=== PATIENT | male | born 1995 | race Caucasian/White ===

== ENCOUNTER 2018-06-07 23:16 | Emergency (ER) | payer MEDICAID, SELFPAY ==
[2018-06-07 23:19] VITALS: BP 142/80; PULSE 61; RESP 20; TEMP 36.8; O2SAT 97
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
[2018-06-07] MEDS: LORazepam 1 MG TAB PO (23:37)
[2018-06-07] MEDS: Haloperidol 5 MG TAB PO (23:37)
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
[2018-06-07 23:58] LABS: Abs Immature Grans 0.03 k/cumm (0.0-0.09); Absolute Basophil Count 0.05 k/cumm (0.0-0.2); Absolute Eosinophil Count 0.15 k/cumm (0.0-0.7); Absolute Lymphocyte Count 2.54 k/cumm (1.2-3.4); Absolute Monocyte Count 1.34 k/cumm (0.11-0.7); Absolute Neutrophil Count 7.15 k/cumm (1.2-6.7); Basophils % 0.4; Eosinophils % 1.3; HCT 43.4 % (40.0-50.0); HGB 14.5 g/dL (13.5-17.5); Immature Grans % 0.3; Lymphocytes % 22.6; Mean Corp. HGB Concentration 33.4 g/dL (32.0-36.0); Mean Corpuscular Volume 92.9 fL (80-95); Mean Platelet Volume 10.2 fL (8.0-11.0); Monocytes % 11.9; Neutrophils % 63.5; Platelet Count 334 x1000/uL (130-400); RBC 4.67 m/cumm (4.50-6.00); RBC Distribution Width 13.2 % (11.8-14.1); White Blood Cell Count 11.26 k/cumm (4.4-10.8)
--- NOTE | 2018-06-08 00:03 | PDOC.MHCN ---
Presenting Issue: *How did they arrive here at ER and why did they come: Sgt Palomo and Officer Jeny of the [facility] [employer] bring patient to the ER due to erratic behavior and possible psychosis. Precipitating Factors: *Assessment of Safety SI/HI (address delusions if pertaining to the SI/HI) Patient does not answer questions asked of him, so it is impossible to assess for suicidal or homicidal ideation. He goes off on tangents. Speech is pressured. He does out of the blue tell the police officers that he knows how to commit suicide and begins to name the different ways he could kill himself if he wanted to. Patient becomes so agitated while at the hospital that he has to be restrained. Disposition: *Behavior: Uncooperative. *Eye Contact: Direct and intense. *Mood: Agitated. *Affect: Anxious. *Appetite: Unknown. *Sleep (trouble falling/staying asleep): Unknown. Plan: Plan is for patient to remain at [facility] for observation to rule-out drug induced psychosis. He will be assessed in the morning.
--- NOTE | 2018-06-08 00:10 | PDOC.MHCN_ITS ---
Presenting Issue: *How did they arrive here at ER and why did they come: Sgt Palomo and Officer Jeny of the [facility] Police Dept. bring patient to the ER due to erratic behavior and possible psychosis. Precipitating Factors: *Assessment of Safety SI/HI (address delusions if pertaining to the SI/HI) Patient does not answer questions asked of him, so it is impossible to assess for suicidal or homicidal ideation. He goes off on tangents. Speech is pressured. He does out of the blue tell the police officers that he knows how to commit suicide and begins to name the different ways he could kill himself if he wanted to. Patient becomes so agitated while at the hospital that he has to be restrained. Disposition: *Behavior: Uncooperative. *Eye Contact: Direct and intense. *Mood: Agitated. *Affect: Anxious. *Appetite: Unknown. *Sleep (trouble falling/staying asleep): Unknown. Plan: Plan is for patient to remain at [facility] for observation to rule-out drug induced psychosis. He will be assessed in the morning.
[2018-06-08 00:20] LABS: ALT 26 U/L (12-78); AST 20 U/L (15-37); Albumin 4.3 g/dL (3.4-5.0); Alkaline Phosphatase 68 U/L (46-116); Anion Gap 7.2 mmol/L (3-11); BUN 7 mg/dL (7-18); CO2 28.8 mmol/L (21.0-32.0); CREATININE 0.81 mg/dL (0.70-1.30); Calcium 9.2 mg/dL (8.5-10.1); Chloride 101 mmol/L (98-107); ETHANOL BLOOD < 3.0 mg/dL (<3); Glucose 98 mg/dL (70-100); Potassium 3.6 mmol/L (3.5-5.1); Sodium 137 mmol/L (136-145); TSH (W/Ref FT4) 0.91 uIU/mL (0.358-3.74); Total Protein 7.9 g/dL (6.4-8.2)
[2018-06-08 00:38] LABS: *AMPHETAMINES SCREEN URINE Negative (Negative); *BARBITURATES SCREEN URINE Negative (Negative); *BENZODIAZEPINES SCREEN URINE Negative (Negative); Cannabinoids THC POSITIVE (Negative); Cocaine Screen,Urine Negative (Negative); METHADONE URINE SCREEN Negative (Negative); OPIATES URINE SCREEN Negative (Negative)
[2018-06-08 00:39] LABS: Salicylate < 2.8 mg/dL (2.8-20.0)
[2018-06-08 00:40] LABS: Acetaminophen < 2 ug/mL (10-30)
[2018-06-08 00:40] LABS: Tricyclic Antidepressants Negative (Negative)
[2018-06-08 07:47] VITALS: BP 101/69; PULSE 52; RESP 16; TEMP 36.8; O2SAT 100
--- NOTE | 2018-06-08 08:11 | PDOC.MHCN ---
Presenting Issue: *How did they arrive here at ER and why did they come: [facility] Police bring patient to the ER Wednesday evening due to erratic behavior. Patient was uncooperative upon arrival at the hospital and had to be placed in restraints. Precipitating Factors: *Assessment of Safety SI/HI (address delusions if pertaining to the SI/HI) This morning patient is irritable and uncooperative at first but he is able to calm down and answer questions. He denies current suicidal ideation and states he will remain safe in the community. He denies HI. He continues to exhibit tangential thinking and pressured speech. When asked about hallucinations, he replies that he sees things differently than everyone else but is unwilling to elaborate. He shares that he believes he may have schizophrenia and psychosis. When asked why he thinks he has those psychiatric illnesses, he replies that he's been reading books and has given himself those diagnoses. He, however, is unwilling to discuss what he is experiencing and how he came to the conclusion that he has schizophrenia and psychosis. Disposition: *Behavior: Uncooperative and agitated at first but is able to regain composure. *Eye Contact: Good. *Mood: Irritable. *Affect: Anxious. *Appetite: Unknown. *Sleep (trouble falling/staying asleep): Good. Plan: Patient is being discharged as he refuses a voluntary hospitalization and he does not meet criteria for involuntary hospitalization. He is given contact information for [facility] and instructed to follow-up with the agency for psychiatric care.
--- NOTE | 2018-06-08 08:20 | PDOC.MHCN_ITS ---
Presenting Issue: *How did they arrive here at ER and why did they come: [facility] Police bring patient to the ER Wednesday evening due to erratic behavior. Patient was uncooperative upon arrival at the hospital and had to be placed in restraints. Precipitating Factors: *Assessment of Safety SI/HI (address delusions if pertaining to the SI/HI) This morning patient is irritable and uncooperative at first but he is able to calm down and answer questions. He denies current suicidal ideation and states he will remain safe in the community. He denies HI. He continues to exhibit tangential thinking and pressured speech. When asked about hallucinations, he replies that he sees things differently than everyone else but is unwilling to elaborate. He shares that he believes he may have schizophrenia and psychosis. When asked why he thinks he has those psychiatric illnesses, he replies that he's been reading books and has given himself those diagnoses. He, however, is unwilling to discuss what he is experiencing and how he came to the conclusion that he has schizophrenia and psychosis. Disposition: *Behavior: Uncooperative and agitated at first but is able to regain composure. *Eye Contact: Good. *Mood: Irritable. *Affect: Anxious. *Appetite: Unknown. *Sleep (trouble falling/staying asleep): Good. Plan: Patient is being discharged as he refuses a voluntary hospitalization and he does not meet criteria for involuntary hospitalization. He is given contact information for [facility] and instructed to follow-up with the agency for psychiatric care.
== END 2018-06-08 08:11 | disposition still patient (30) ==
PROVIDERS: Emergency Provider Emergency Medicine; PCP Nurse Practitioner
DX: F23 Brief psychotic disorder (principal); Z78.1 Physical restraint status
CPT/HCPCS: 80053; 80307; 99285; 80320; 80329; 84443; 85025; 99284